=== PATIENT | female | born 1960 | race Caucasian/White ===

== ENCOUNTER 2018-03-12 08:13 | Inpatient (IN) | payer MEDICARE ==
[~2018-03-12] VITALS: Ht 165.1 cm; Wt 86.2 kg
[~2018-03-12 08:13] MED LIST: ALPR1TAB2 PO; ATOR80TA PO; CLON0.1T12 PO; CYCL-259 PO; ETOMIDATE 40 MG/20 ML ONE; LEVO100T PO; LIOT5TAB10 PO; MELO7.5T31 PO; MIDAZOLAM 1 MG/ML, 5ML ONE; ONDA4TAB13 SL; PROPOFOL 10 MG/ML, 100ML IV ONE; SUCCINYLCHOLINE 20 MG/ML, 10ML ONE; ZOLP10TA PO
[2018-03-12] MEDS ORDERED: PROPOFOL 100 ML IV PRN (08:18)
--- NOTE | 2018-03-12 08:27 | NUR ---
SEXOLOGIST: 150 MG SUCCS, 20 ETOMIDATE ADMINISTERED FOR RSI, MD RIVERA PREFORMING INTUBATION
--- NOTE | 2018-03-12 08:29 | NUR ---
BARREL RAISER: PT INTUBATED SUCCESSFULLY, 32 @ LIP, 7.5 ETT, + BILATERAL BREATH SOUNDS, + COLOR CHANGE
[2018-03-12] MEDS ORDERED: SUCCINYLCHOLINE 20 MG/ML, 10ML IVPush ONE (08:30)
[2018-03-12] MEDS ORDERED: SODIUM CHLORIDE FLUSH 10ML SYR IVF ONE (08:30)
[2018-03-12] MEDS ORDERED: SODIUM CHLORIDE 0.9% 1,000ML IVBOLUS ONE ×3 (08:30→20:00)
[2018-03-12] MEDS ORDERED: ETOMIDATE 20 MG/10 ML IVPush ONE (08:30)
[2018-03-12] MEDS ORDERED: FENTANYL PF 100 MCG/2ML ONE ×2 (09:00→10:34)
[2018-03-12] MEDS ORDERED: PROPOFOL 10 MG/ML, 20ML IVPush ONE (09:00)
[2018-03-12] MEDS ORDERED: FENTANYL PF 100 MCG/2ML IV ONE ×2 (09:00→12:00)
[2018-03-12] MEDS ORDERED: MIDAZOLAM 1 MG/ML, 2ML IVPush ONE (09:00)
[2018-03-12 09:41] LABS: MEAN CORPUSCULAR HGB CONC 32.7 g/dL (32.4-35.8); PLATELET COUNT 145 x10^3/uL (130-400); RED BLOOD COUNT 4.66 x10^6/uL (3.82-5.3); RED CELL DISTRIBUTION WIDTH 14.9 % (9.6-15.2)
[2018-03-12 09:52] LABS: INTERNATIONAL NORMALIZED RATIO 1.2 (0.93-1.1); PROTHROMBIN TIME 12.6 Seconds (9.6-11.5)
[2018-03-12 09:54] LABS: ALANINE AMINOTRANSFERASE 184 U/L (12-78); CHLORIDE 99 mmol/L (98-107); CREATININE 2.89 mg/dL (0.55-1.02); SALICYLATE LEVEL 1.8 mg/dL (2.8-20.0)
[2018-03-12 10:00] LABS: ANION GAP 16 mmol/L (5-15)
--- NOTE | 2018-03-12 10:00 | NUR ---
RINGS X 2 REMOVED AND GIVEN TO
--- NOTE | 2018-03-12 10:01 | NUR ---
LUISA, NUSRAT CELL #[phone]
[2018-03-12 10:08] LABS: ALKALINE PHOSPHATASE 116 U/L (45-117); BILIRUBIN,TOTAL 0.7 mg/dL (0.2-1.0); CREATINE KINASE, TOTAL 1917 U/L (26-192); TOTAL PROTEIN 7.7 g/dL (6.4-8.2)
[2018-03-12 10:09] LABS: MICROSCOPIC AUTO
[2018-03-12 10:12] LABS: ACETAMINOPHEN < 2 mcg/mL (10-30)
[2018-03-12 10:14] LABS: CULTURE INDICATED? NO
[2018-03-12 10:18] LABS: AMPHETAMINE SCREEN, URINE Negative (Negative); BARBITURATE SCREEN, URINE Negative (Negative); BENZODIAZEPINE SCREEN, URINE Positive (Negative); CANNABINOID SCREEN, URINE Negative (Negative); COCAINE SCREEN, URINE Negative (Negative); METHADONE SCREEN, URINE Negative (Negative); OPIATE SCREEN, URINE Positive (Negative)
[2018-03-12] MEDS ORDERED: DEXTROSE 50%, 50ML SYRINGE ONE (10:20)
[2018-03-12] MEDS ORDERED: CALCIUM CHLORIDE 10%, 10ML SYR ONE (10:20)
[2018-03-12] MEDS ORDERED: INSULIN REGULAR 100 UNITS/ML, 3ML VIAL ONE (10:22)
[2018-03-12 10:24] LABS: FREE T4 (FREE THYROXINE) 0.4 ng/dL (0.76-1.46); THYROID STIMULATING HORMONE 48.4 mIU/L (0.358-3.740)
[2018-03-12 10:28] LABS: MD YES
[2018-03-12 10:30] LABS: <PLATELET ESTIMATE> ADEQUATE; <RBC MORPHOLOGY> NORMAL; BAND#(MANUAL) 2.23 x10^3/uL; BANDS%(MANUAL) 8 % (0-7); LYMPH#(MANUAL) 1.12 x10^3/uL (1-3.4); LYMPHS% (MANUAL) 4 % (22-44); METAMYELOCYTES# (MANUAL) 0.28 x10^3/uL (0-0); METAMYELOCYTES% (MANUAL) 1 % (0-1); MONOS#(MANUAL) 1.95 x10^3/uL (0.3-2.7); MONOS% (MANUAL) 7 % (2-9); SEG#(MANUAL) 22.32 x10^3/uL (1.8-6.8); SEGS% (MANUAL) 80 % (42-75)
[2018-03-12] MEDS ORDERED: DEXTROSE 50%, 50ML SYRINGE IVPush ONE (10:30)
[2018-03-12] MEDS ORDERED: INSULIN REGULAR 100 UNITS/ML, 3ML VIAL IVPush ONE (10:30)
[2018-03-12] MEDS ORDERED: CALCIUM CHLORIDE 13.6 MEQ in SODIUM CHLORIDE 0.9% 100 ML IV ONE (10:30)
[2018-03-12] MEDS ORDERED: CALCIUM CHLORIDE 10%, 10ML SYR IVPush ONE ×2 (10:30→11:00)
[2018-03-12] MEDS ORDERED: AMPICILLIN/SULBACTAM 3 GM in SODIUM CHLORIDE 0.9% 100 ML IV ONE (10:30)
[2018-03-12] MEDS ORDERED: SODIUM CHLORIDE 0.9% 1,000 ML IV ONE (10:30)
[2018-03-12 10:31] LABS: LARGE PLATELETS 1+
[2018-03-12] MEDS ORDERED: SODIUM CHLORIDE 0.9% 1,000 ML IV SCH (10:56)
[2018-03-12] MEDS: AMPICILLIN/SULBACTAM 3 GM in SODIUM CHLORIDE 0.9% 100 ML IV SCH ×2 (11:00→18:12)
[2018-03-12] MEDS ORDERED: morphine SULFATE 10 MG/ML, 1ML IVPush PRN (11:00)
[2018-03-12] MEDS ORDERED: BISACODYL 10 MG SUPP PR PRN (11:00)
[2018-03-12] MEDS ORDERED: LEVOTHYROXINE 100 MCG INJ IVPush SCH (11:00)
[2018-03-12] MEDS ORDERED: POLYETHYLENE GLYCOL 17 GM PACKET PO PRN (11:00)
[2018-03-12] MEDS ORDERED: LABETALOL 5MG/ML, 20ML IVPush PRN (11:00)
[2018-03-12] MEDS ORDERED: ACETAMINOPHEN 325 MG TABLET PO PRN (11:00)
[2018-03-12] MEDS ORDERED: ONDANSETRON ODT 4 MG PO PRN (11:00)
[2018-03-12] MEDS: SODIUM BICARB 8.4%,50ML SYR. 50 MEQ in SODIUM CHLORIDE 0.45% 1,000 ML IV SCH ×2 (11:51→20:10)
--- NOTE | 2018-03-12 11:51 | NUR ---
LATE ENTRY, PT AT BEDSIDE, RPTS THAT HIS WAS SITTING UP WATCHING TV LAST NIGHT WHEN HE WENT TO BED AT 2300. WHEN HE WOKE UP THIS MORNING HE STATES THAT SHE WAS IN THE SAME POSITIONS WHEN HE LAST SAW HER AT 2300. RPTS THAT SHE WAS UNRESPONSIVE AND HE CALLED 911.
--- NOTE | 2018-03-12 11:53 | NUR ---
LATE ENTRY 1115, PT TRANSFERED TO CCU 550. ABG RESULTS REVIEWED WITH POOJA DUKE. [facility] TO FOLLOW ABG AND LAB RESULTS.
[2018-03-12] MEDS: HEPARIN 5,000 UNITS/ML, 1ML SQ SCH ×2 (12:38→19:13)
[2018-03-12] MEDS: LIOTHYRONINE 5 MCG TABLET PO SCH ×2 (12:38→19:13)
[2018-03-12 12:40] LABS: TROPONIN I 0.635 ng/mL (0.000-0.045)
[2018-03-12] MEDS ORDERED: PROPOFOL 10 MG/ML, 20ML IV ONE (14:00)
[2018-03-12] MEDS ORDERED: LIDOCAINE-MPF 1%, 2ML ENDO PRN (14:00)
[2018-03-12] MEDS ORDERED: PHARMACY MAY ADJ FOR RENAL FX MC SCH (14:00)
[2018-03-12] MEDS: ALBUTEROL/IPRATROPIUM 2.5MG/0.5MG, 3 ML INLINE SCH ×3 (14:00→22:40)
[2018-03-12] MEDS: FAMOTIDINE 20 MG/2 ML IVPush SCH (20:09)
[2018-03-12] MEDS ORDERED: FAMOTIDINE 20 MG/2 ML IVPush SCH (21:00)
[2018-03-12] MEDS: PROPOFOL 100 ML IV PRN (21:01)
[2018-03-13] MEDS: AMPICILLIN/SULBACTAM 3 GM in SODIUM CHLORIDE 0.9% 100 ML IV SCH ×4 (01:09→19:00)
[2018-03-13] MEDS: ALBUTEROL/IPRATROPIUM 2.5MG/0.5MG, 3 ML INLINE SCH ×6 (02:22→22:45)
[2018-03-13] MEDS: HEPARIN 5,000 UNITS/ML, 1ML SQ SCH ×3 (03:21→19:00)
[2018-03-13] MEDS: SODIUM BICARB 8.4%,50ML SYR. 50 MEQ in SODIUM CHLORIDE 0.45% 1,000 ML IV SCH ×3 (03:21→22:58)
[2018-03-13] MEDS: LIOTHYRONINE 5 MCG TABLET PO SCH ×3 (03:21→19:22)
[2018-03-13] MEDS: PROPOFOL 100 ML IV PRN ×5 (03:22→23:36)
[2018-03-13 04:31] LABS: CHLORIDE 109 mmol/L (98-107)
[2018-03-13 04:43] VITALS: BP 127/77
[2018-03-13 04:54] LABS: ALANINE AMINOTRANSFERASE 347 U/L (12-78); ALBUMIN 2.7 g/dL (3.4-5.0); ALKALINE PHOSPHATASE 87 U/L (45-117); ANION GAP 13 mmol/L (5-15); BILIRUBIN,TOTAL 0.7 mg/dL (0.2-1.0); CALCIUM 7.3 mg/dL (8.5-10.1); CHOL/HDL RATIO 4.3; CHOLESTEROL, TOTAL 152 mg/dL (140-239); CREATINE KINASE, TOTAL 1757 U/L (26-192); CREATININE 1.94 mg/dL (0.55-1.02); HDL CHOL % 23 % (28-40); HDL CHOLESTEROL (DIRECT) 35 mg/dL (40-60); LDL CHOLESTEROL,CALCULATED 81 mg/dL (54-169); LDL/HDL RATIO 2.3 (0.5-3.0); TOTAL PROTEIN 5.7 g/dL (6.4-8.2); TRIGLYCERIDES 178 mg/dL (50-200); VLDL CHOLESTEROL 36 mg/dL (0-25)
[2018-03-13] MEDS: LEVOTHYROXINE 100 MCG INJ IVPush SCH (05:10)
[2018-03-13] MEDS ORDERED: ASPIRIN 325 MG TABLET EC PO SCH (06:00)
[2018-03-13 07:46] LABS: MEAN CORPUSCULAR HEMOGLOBIN 31.3 pg (27.0-34.8); MEAN CORPUSCULAR HGB CONC 33.6 g/dL (32.4-35.8); MEAN CORPUSCULAR VOLUME 93.3 fL (80-100); MEAN PLATELET VOLUME 7.4 fL (7.4-10.4); PLATELET COUNT 258 x10^3/uL (130-400); RED BLOOD COUNT 4.18 x10^6/uL (3.82-5.3)
[2018-03-13] MEDS ORDERED: MAGNESIUM SULFATE PMX 2GM/50ML 50 ML IV ONE (08:00)
[2018-03-13 08:22] LABS: BASOPHILS # (AUTO) 0.08 x10^3/uL (0-0.1); BASOPHILS % (AUTO) 1 % (0-1); EOSINOPHILS % (AUTO) 0 % (1-7); LYMPHOCYTES # (AUTO) 2.58 x10^3/uL (1-3.4); LYMPHOCYTES % (AUTO) 15 % (22-44); MD SCAN; MONOCYTES # (AUTO) 0.81 x10^3/uL (0.2-0.8); MONOCYTES % (AUTO) 5 % (2-9); NEUTROPHILS # (AUTO) 14.26 x10^3/uL (1.8-6.8); NEUTROPHILS % (AUTO) 80 % (42-75)
[2018-03-13] MEDS: SENNA/DOCUSATE TABLET PO SCH (09:43)
--- NOTE | 2018-03-13 11:39 | NUR ---
TF GOAL when ordered: w/ propofol: VITAL HIGH PROTEIN @ 45ML/HR off propofol: VITAL HIGH PROTEIN @ 55ML/HR
[2018-03-13] MEDS ORDERED: DESMOPRESSIN 4 MCG/ML IVPush ONE (15:00)
[2018-03-13] MEDS: FENTANYL PF 100 MCG/2ML IVPush PRN (15:03)
[2018-03-13] MEDS: FAMOTIDINE 20 MG/2 ML IVPush SCH (19:21)
[2018-03-14] MEDS: AMPICILLIN/SULBACTAM 3 GM in SODIUM CHLORIDE 0.9% 100 ML IV SCH ×4 (01:29→19:23)
[2018-03-14] MEDS: ALBUTEROL/IPRATROPIUM 2.5MG/0.5MG, 3 ML INLINE SCH ×6 (02:25→22:24)
[2018-03-14] MEDS: LIOTHYRONINE 5 MCG TABLET PO SCH ×3 (03:02→19:29)
[2018-03-14] MEDS: HEPARIN 5,000 UNITS/ML, 1ML SQ SCH ×3 (03:02→19:23)
[2018-03-14] MEDS: PROPOFOL 100 ML IV PRN ×2 (03:41→07:09)
[2018-03-14 04:00] VITALS: BP 140/91
[2018-03-14 04:35] LABS: BASOPHILS # (AUTO) 0.04 x10^3/uL (0-0.1); BASOPHILS % (AUTO) 0 % (0-1); EOSINOPHILS # (AUTO) 0.03 x10^3/uL (0-0.4); EOSINOPHILS % (AUTO) 0 % (1-7); LYMPHOCYTES # (AUTO) 2.47 x10^3/uL (1-3.4); LYMPHOCYTES % (AUTO) 18 % (22-44); MD NO; MEAN CORPUSCULAR HEMOGLOBIN 31.9 pg (27.0-34.8); MEAN CORPUSCULAR HGB CONC 34.2 g/dL (32.4-35.8); MEAN CORPUSCULAR VOLUME 93.3 fL (80-100); MEAN PLATELET VOLUME 7.4 fL (7.4-10.4); MONOCYTES # (AUTO) 0.59 x10^3/uL (0.2-0.8); MONOCYTES % (AUTO) 4 % (2-9); NEUTROPHILS # (AUTO) 10.43 x10^3/uL (1.8-6.8); NEUTROPHILS % (AUTO) 77 % (42-75); PLATELET COUNT 181 x10^3/uL (130-400); RED BLOOD COUNT 3.83 x10^6/uL (3.82-5.3)
[2018-03-14] MEDS: ASPIRIN 325 MG TABLET PO SCH (05:36)
[2018-03-14] MEDS: LEVOTHYROXINE 100 MCG INJ IVPush SCH (05:37)
[2018-03-14 06:32] LABS: ANION GAP 11 mmol/L (5-15); CALCIUM 7.6 mg/dL (8.5-10.1); CHLORIDE 106 mmol/L (98-107)
[2018-03-14 06:34] LABS: CREATININE 0.75 mg/dL (0.55-1.02)
[2018-03-14] MEDS: SODIUM BICARB 8.4%,50ML SYR. 50 MEQ in SODIUM CHLORIDE 0.45% 1,000 ML IV SCH (07:09)
[2018-03-14] MEDS ORDERED: POTASSIUM CHLORIDE 10% 40 MEQ/30 ML UDC NG ONE (09:00)
[2018-03-14] MEDS ORDERED: POTASSIUM CHLORIDE 40 MEQ in SODIUM CHLORIDE 0.9% 100 ML IV ONE (09:00)
[2018-03-14 09:10] LABS: FREE T4 (FREE THYROXINE) 1.01 ng/dL (0.76-1.46)
[2018-03-14] MEDS: SENNA/DOCUSATE TABLET PO SCH (10:30)
[2018-03-14] MEDS: DEXMEDETOMIDINE 200 MCG in SODIUM CHLORIDE 0.9% 48 ML IV PRN ×3 (12:23→15:00)
[2018-03-14] MEDS: SODIUM CHLORIDE 0.9% 1,000 ML IV SCH (13:54)
[2018-03-14] MEDS ORDERED: DEXMEDETOMIDINE 1,000 MCG in SODIUM CHLORIDE 0.9% 240 ML IV PRN (16:00)
[2018-03-14] MEDS: FAMOTIDINE 20 MG/2 ML IVPush SCH (20:17)
[2018-03-14] MEDS: LORazepam 2 MG/ML, 1ML IVPush PRN (22:03)
[2018-03-15] MEDS: FENTANYL PF 100 MCG/2ML IVPush PRN ×2 (00:45→15:45)
[2018-03-15] MEDS: AMPICILLIN/SULBACTAM 3 GM in SODIUM CHLORIDE 0.9% 100 ML IV SCH ×4 (01:08→18:39)
[2018-03-15] MEDS: PROPOFOL 100 ML IV PRN ×6 (01:37→23:06)
[2018-03-15] MEDS: ALBUTEROL/IPRATROPIUM 2.5MG/0.5MG, 3 ML INLINE SCH ×6 (02:25→23:22)
[2018-03-15] MEDS: HEPARIN 5,000 UNITS/ML, 1ML SQ SCH ×3 (03:09→18:39)
[2018-03-15] MEDS: LIOTHYRONINE 5 MCG TABLET PO SCH ×3 (03:09→18:38)
[2018-03-15 04:00] VITALS: BP 120/77
[2018-03-15 04:59] LABS: BASOPHILS # (AUTO) 0.02 x10^3/uL (0-0.1); BASOPHILS % (AUTO) 0 % (0-1); EOSINOPHILS # (AUTO) 0.03 x10^3/uL (0-0.4); EOSINOPHILS % (AUTO) 0 % (1-7); LYMPHOCYTES # (AUTO) 2.44 x10^3/uL (1-3.4); LYMPHOCYTES % (AUTO) 18 % (22-44); MD NO; MEAN CORPUSCULAR HGB CONC 34.3 g/dL (32.4-35.8); MEAN CORPUSCULAR VOLUME 93.3 fL (80-100); MEAN PLATELET VOLUME 7.7 fL (7.4-10.4); MONOCYTES # (AUTO) 0.67 x10^3/uL (0.2-0.8); MONOCYTES % (AUTO) 5 % (2-9); NEUTROPHILS # (AUTO) 10.67 x10^3/uL (1.8-6.8); NEUTROPHILS % (AUTO) 77 % (42-75); PLATELET COUNT 135 x10^3/uL (130-400); RED BLOOD COUNT 3.69 x10^6/uL (3.82-5.3)
[2018-03-15 05:12] LABS: ALBUMIN 2.5 g/dL (3.4-5.0); ANION GAP 9 mmol/L (5-15); CALCIUM 7.3 mg/dL (8.5-10.1); CHLORIDE 112 mmol/L (98-107)
[2018-03-15 05:23] LABS: ALANINE AMINOTRANSFERASE 224 U/L (12-78); ALKALINE PHOSPHATASE 85 U/L (45-117); BILIRUBIN, DIRECT 0.4 mg/dL (0.1-0.2); BILIRUBIN,INDIRECT 0.6 mg/dL (0.0-2.0); CREATININE 0.69 mg/dL (0.55-1.02); FREE T4 (FREE THYROXINE) 1.03 ng/dL (0.76-1.46); TOTAL PROTEIN 5.7 g/dL (6.4-8.2); TRIGLYCERIDES 224 mg/dL (50-200)
[2018-03-15] MEDS: LEVOTHYROXINE 100 MCG INJ IVPush SCH (05:31)
[2018-03-15] MEDS: ASPIRIN 325 MG TABLET PO SCH (05:31)
[2018-03-15] MEDS: SENNA/DOCUSATE TABLET PO SCH (09:25)
[2018-03-15] MEDS: SODIUM CHLORIDE 0.9% 1,000 ML IV SCH (09:26)
[2018-03-15] MEDS: DEXAMETHASONE 4 MG/ML, 5ML IV SCH ×3 (10:49→22:12)
[2018-03-15] MEDS: LORazepam 2 MG/ML, 1ML IVPush PRN (15:25)
[2018-03-15] MEDS ORDERED: DEXMEDETOMIDINE 1,000 MCG in SODIUM CHLORIDE 0.9% 240 ML IV PRN (16:00)
[2018-03-15] MEDS ORDERED: POTASSIUM CHLORIDE 10% 40 MEQ/30 ML UDC PO ONE (18:30)
[2018-03-15] MEDS: MIDAZOLAM HCL 25 MG in SODIUM CHLORIDE 0.9% 245 ML IV PRN (20:10)
[2018-03-15] MEDS: FAMOTIDINE 20 MG/2 ML IVPush SCH (20:16)
[2018-03-16] MEDS: AMPICILLIN/SULBACTAM 3 GM in SODIUM CHLORIDE 0.9% 100 ML IV SCH ×4 (01:08→19:51)
[2018-03-16] MEDS: FENTANYL PF 100 MCG/2ML IVPush PRN (01:50)
[2018-03-16] MEDS: MIDAZOLAM HCL 25 MG in SODIUM CHLORIDE 0.9% 245 ML IV PRN (02:23)
[2018-03-16] MEDS ORDERED: SODIUM CHLORIDE 0.9%, 500ML IVBOLUS ONE (02:30)
[2018-03-16] MEDS ORDERED: ALBUMIN HUMAN 25% 100 ML IV PRN (02:30)
[2018-03-16] MEDS ORDERED: SODIUM CHLORIDE 0.9%, 500ML IVBOLUS PRN (02:30)
[2018-03-16] MEDS: HEPARIN 5,000 UNITS/ML, 1ML SQ SCH (03:02)
[2018-03-16] MEDS: LIOTHYRONINE 5 MCG TABLET PO SCH ×3 (03:03→19:51)
[2018-03-16 03:47] LABS: BASOPHILS % (AUTO) 0 % (0-1); EOSINOPHILS % (AUTO) 0 % (1-7); LYMPHOCYTES # (AUTO) 0.94 x10^3/uL (1-3.4); LYMPHOCYTES % (AUTO) 10 % (22-44); MD NO; MEAN CORPUSCULAR HEMOGLOBIN 31.7 pg (27.0-34.8); MEAN PLATELET VOLUME 8.1 fL (7.4-10.4); MONOCYTES # (AUTO) 0.13 x10^3/uL (0.2-0.8); MONOCYTES % (AUTO) 1 % (2-9); NEUTROPHILS # (AUTO) 8.65 x10^3/uL (1.8-6.8); NEUTROPHILS % (AUTO) 89 % (42-75); PLATELET COUNT 138 x10^3/uL (130-400); RED BLOOD COUNT 3.67 x10^6/uL (3.82-5.3); RED CELL DISTRIBUTION WIDTH 15.2 % (9.6-15.2)
[2018-03-16] MEDS: ALBUTEROL/IPRATROPIUM 2.5MG/0.5MG, 3 ML INLINE SCH ×3 (03:50→10:59)
[2018-03-16 03:54] LABS: ANION GAP 13 mmol/L (5-15); CALCIUM 7.6 mg/dL (8.5-10.1); CHLORIDE 116 mmol/L (98-107); CREATININE 0.66 mg/dL (0.55-1.02)
[2018-03-16] MEDS: DEXAMETHASONE 4 MG/ML, 5ML IV SCH (04:03)
[2018-03-16 04:06] VITALS: BP 135/90
[2018-03-16] MEDS ORDERED: SODIUM CHLORIDE 0.9% 1,000 ML IV SCH ×2 (05:00→14:00)
[2018-03-16] MEDS: PROPOFOL 100 ML IV PRN ×2 (05:15→08:19)
[2018-03-16] MEDS: ASPIRIN 325 MG TABLET PO SCH (05:44)
[2018-03-16] MEDS: LEVOTHYROXINE 100 MCG INJ IVPush SCH (05:50)
[2018-03-16] MEDS: FAMOTIDINE 20 MG/2 ML IVPush SCH ×2 (07:37→21:13)
[2018-03-16] MEDS: SENNA/DOCUSATE TABLET PO SCH (07:37)
[2018-03-16] MEDS: OXYcodone IR 5MG TABLET PO PRN ×2 (09:08→13:53)
[2018-03-16] MEDS ORDERED: POTASSIUM CHLORIDE 20 MEQ PACKET PO ONE (11:30)
[2018-03-16] MEDS ORDERED: ALBUTEROL/IPRATROPIUM 2.5MG/0.5MG, 3 ML NPPB PRN (15:00)
[2018-03-16] MEDS: ONDANSETRON 2MG/ML, 2ML IVPush PRN (23:22)
[2018-03-17] MEDS: AMPICILLIN/SULBACTAM 3 GM in SODIUM CHLORIDE 0.9% 100 ML IV SCH ×4 (02:34→20:07)
[2018-03-17] MEDS: LIOTHYRONINE 5 MCG TABLET PO SCH ×3 (02:34→20:07)
[2018-03-17 03:47] VITALS: BP_SYST 125; BP_SYST 138; BP_DIAS 55; BP_DIAS 88
[2018-03-17 04:19] LABS: BASOPHILS # (AUTO) 0.05 x10^3/uL (0-0.1); BASOPHILS % (AUTO) 0 % (0-1); EOSINOPHILS # (AUTO) 0.01 x10^3/uL (0-0.4); EOSINOPHILS % (AUTO) 0 % (1-7); LYMPHOCYTES # (AUTO) 2.94 x10^3/uL (1-3.4); LYMPHOCYTES % (AUTO) 21 % (22-44); MD NO; MEAN CORPUSCULAR HEMOGLOBIN 31.9 pg (27.0-34.8); MEAN CORPUSCULAR HGB CONC 33.8 g/dL (32.4-35.8); MEAN CORPUSCULAR VOLUME 94.3 fL (80-100); MEAN PLATELET VOLUME 7.6 fL (7.4-10.4); MONOCYTES # (AUTO) 1.01 x10^3/uL (0.2-0.8); MONOCYTES % (AUTO) 7 % (2-9); NEUTROPHILS # (AUTO) 10.34 x10^3/uL (1.8-6.8); NEUTROPHILS % (AUTO) 72 % (42-75); PLATELET COUNT 165 x10^3/uL (130-400); RED BLOOD COUNT 3.48 x10^6/uL (3.82-5.3); RED CELL DISTRIBUTION WIDTH 15.4 % (9.6-15.2)
[2018-03-17 04:27] LABS: ANION GAP 10 mmol/L (5-15); CALCIUM 8.1 mg/dL (8.5-10.1); CHLORIDE 117 mmol/L (98-107); CREATININE 0.71 mg/dL (0.55-1.02)
[2018-03-17 04:38] LABS: FREE T4 (FREE THYROXINE) 1.2 ng/dL (0.76-1.46); THYROID STIMULATING HORMONE 6.91 mIU/L (0.358-3.740)
[2018-03-17] MEDS: ASPIRIN 325 MG TABLET PO SCH (06:11)
[2018-03-17] MEDS: LEVOTHYROXINE 100 MCG INJ IVPush SCH (06:12)
[2018-03-17] MEDS: ONDANSETRON 2MG/ML, 2ML IVPush PRN (07:04)
[2018-03-17] MEDS: SENNA/DOCUSATE TABLET PO SCH (09:56)
[2018-03-17] MEDS: FAMOTIDINE 20 MG/2 ML IVPush SCH ×2 (09:56→20:11)
--- NOTE | 2018-03-17 10:36 | NUR ---
REC PUREE/THIN; swallow precautions sheet posted at bedside Addendum: 03/17/18 at [address] Amended: Links added.
[2018-03-17 11:11] LABS: ALANINE AMINOTRANSFERASE 116 U/L (12-78); ALBUMIN 3.1 g/dL (3.4-5.0)
[2018-03-17 11:13] LABS: ALKALINE PHOSPHATASE 68 U/L (45-117); BILIRUBIN,TOTAL 0.8 mg/dL (0.2-1.0); TOTAL PROTEIN 6.3 g/dL (6.4-8.2)
[2018-03-17 12:34] VITALS: BP 144/94
[2018-03-17 20:04] VITALS: BP 150/98
[2018-03-17] MEDS: LORazepam 2 MG/ML, 1ML IVPush PRN (20:08)
[2018-03-18 00:40] VITALS: BP 157/99
[2018-03-18] MEDS: AMPICILLIN/SULBACTAM 3 GM in SODIUM CHLORIDE 0.9% 100 ML IV SCH ×4 (00:46→19:15)
[2018-03-18] MEDS: LORazepam 2 MG/ML, 1ML IVPush PRN ×2 (01:51→20:37)
[2018-03-18] MEDS: ASPIRIN 325 MG TABLET PO SCH ×2 (04:37→06:30)
[2018-03-18] MEDS: LEVOTHYROXINE 100 MCG INJ IVPush SCH (04:37)
[2018-03-18] MEDS: LIOTHYRONINE 5 MCG TABLET PO SCH ×3 (04:37→19:16)
[2018-03-18 05:45] LABS: MEAN CORPUSCULAR HEMOGLOBIN 31.9 pg (27.0-34.8); MEAN CORPUSCULAR HGB CONC 34.1 g/dL (32.4-35.8); MEAN CORPUSCULAR VOLUME 93.6 fL (80-100); MEAN PLATELET VOLUME 7.2 fL (7.4-10.4); PLATELET COUNT 188 x10^3/uL (130-400); RED BLOOD COUNT 3.58 x10^6/uL (3.82-5.3); RED CELL DISTRIBUTION WIDTH 14.9 % (9.6-15.2)
[2018-03-18 05:48] LABS: ANION GAP 9 mmol/L (5-15); CALCIUM 8.1 mg/dL (8.5-10.1); CHLORIDE 109 mmol/L (98-107); CREATININE 0.54 mg/dL (0.55-1.02)
[2018-03-18 05:49] LABS: ALANINE AMINOTRANSFERASE 84 U/L (12-78); ALBUMIN 2.9 g/dL (3.4-5.0)
[2018-03-18 05:51] LABS: ALKALINE PHOSPHATASE 73 U/L (45-117); BILIRUBIN,TOTAL 0.7 mg/dL (0.2-1.0); TOTAL PROTEIN 6.1 g/dL (6.4-8.2)
[2018-03-18 06:01] LABS: BASOPHILS # (AUTO) 0.04 x10^3/uL (0-0.1); BASOPHILS % (AUTO) 0 % (0-1); EOSINOPHILS # (AUTO) 0.27 x10^3/uL (0-0.4); EOSINOPHILS % (AUTO) 2 % (1-7); LYMPHOCYTES # (AUTO) 2.84 x10^3/uL (1-3.4); LYMPHOCYTES % (AUTO) 25 % (22-44); MD SCAN; MONOCYTES # (AUTO) 0.93 x10^3/uL (0.2-0.8); MONOCYTES % (AUTO) 8 % (2-9); NEUTROPHILS # (AUTO) 7.37 x10^3/uL (1.8-6.8); NEUTROPHILS % (AUTO) 64 % (42-75)
[2018-03-18] MEDS: FAMOTIDINE 20 MG/2 ML IVPush SCH ×2 (07:54→20:37)
[2018-03-18] MEDS: SENNA/DOCUSATE TABLET PO SCH (07:54)
[2018-03-18 08:30] VITALS: BP 128/79
[2018-03-18 14:20] VITALS: BP 122/76
[2018-03-18] MEDS ORDERED: POTASSIUM CHLORIDE 20 MEQ TAB.ER.PRT PO ONE (15:00)
--- NOTE | 2018-03-18 15:10 | NUR ---
NET DEVELOPER recommed: REGULAR/ THINS -no straws -upright at 90 degrees -Small bites/ sips -Close supervision. [place] sheet updated Addendum: 03/18/18 at [address] Amended: Links added.
[2018-03-18] MEDS: OXYcodone IR 5MG TABLET PO PRN (17:59)
[2018-03-18 20:21] VITALS: BP 144/93
[2018-03-18] MEDS: APIXABAN 5 MG TABLET PO SCH (22:13)
[2018-03-19] MEDS: AMPICILLIN/SULBACTAM 3 GM in SODIUM CHLORIDE 0.9% 100 ML IV SCH ×3 (01:07→13:44)
[2018-03-19 01:09] VITALS: BP 135/81
[2018-03-19] MEDS ORDERED: DIPHENHYDRAMINE 12.5MG/5ML, 10ML UDC PO ONE (01:30)
[2018-03-19] MEDS: LIOTHYRONINE 5 MCG TABLET PO SCH ×2 (02:48→21:56)
[2018-03-19] MEDS ORDERED: LEVOTHYROXINE 200 MCG TABLET PO SCH (06:00)
[2018-03-19 06:20] LABS: ANION GAP 8 mmol/L (5-15); CALCIUM 7.9 mg/dL (8.5-10.1); CHLORIDE 109 mmol/L (98-107); CREATININE 0.53 mg/dL (0.55-1.02)
[2018-03-19 08:00] VITALS: BP 142/88
[2018-03-19] MEDS ORDERED: POTASSIUM CHLORIDE 20 MEQ TAB.ER.PRT PO SCH (08:00)
[2018-03-19] MEDS: FAMOTIDINE 20 MG/2 ML IVPush SCH (08:59)
[2018-03-19] MEDS: APIXABAN 5 MG TABLET PO SCH ×2 (08:59→21:55)
[2018-03-19] MEDS: SENNA/DOCUSATE TABLET PO SCH (08:59)
[2018-03-19 14:00] VITALS: BP 161/101
[2018-03-19 20:11] VITALS: BP 153/92
[2018-03-19] MEDS: ATORVASTATIN 80 MG TABLET PO SCH (21:55)
[2018-03-20 00:45] VITALS: BP 142/80
[2018-03-20] MEDS: LEVOTHYROXINE 150 MCG TABLET PO SCH (05:02)
[2018-03-20 06:00] LABS: CALCIUM 8.1 mg/dL (8.5-10.1); CHLORIDE 105 mmol/L (98-107)
[2018-03-20 06:02] LABS: ANION GAP 8 mmol/L (5-15); CREATININE 0.69 mg/dL (0.55-1.02)
[2018-03-20 07:50] VITALS: BP 125/83
[2018-03-20] MEDS: LIOTHYRONINE 5 MCG TABLET PO SCH ×2 (09:46→20:28)
[2018-03-20] MEDS: AMLODIPINE 5 MG TABLET PO SCH ×2 (09:46→20:28)
[2018-03-20] MEDS: POTASSIUM CHLORIDE 20 MEQ TAB.ER.PRT PO SCH ×2 (09:46→17:23)
[2018-03-20] MEDS: SENNA/DOCUSATE TABLET PO SCH (09:47)
[2018-03-20] MEDS: APIXABAN 5 MG TABLET PO SCH ×2 (09:48→20:28)
[2018-03-20] MEDS ORDERED: LIDOCAINE 1%, 20ML ONE (12:06)
[2018-03-20 13:06] VITALS: BP 154/80
[2018-03-20] MEDS ORDERED: POTA20TA6 PO (14:56)
[2018-03-20] MEDS ORDERED: AMLO-150 PO (14:56)
[2018-03-20] MEDS ORDERED: LEVO150T PO (14:58)
[2018-03-20] MEDS: ATORVASTATIN 80 MG TABLET PO SCH (20:28)
[2018-03-20] MEDS ORDERED: ZOLPIDEM 10MG TABLET PO SCH (21:00)
[2018-03-20 21:41] VITALS: BP 151/90
[2018-03-21 01:40] VITALS: BP 131/83
[2018-03-21 05:14] LABS: ALBUMIN 3.3 g/dL (3.4-5.0); ANION GAP 5 mmol/L (5-15); CALCIUM 8.7 mg/dL (8.5-10.1); CHLORIDE 108 mmol/L (98-107)
[2018-03-21 05:19] LABS: ALANINE AMINOTRANSFERASE 62 U/L (12-78); ALKALINE PHOSPHATASE 73 U/L (45-117); BILIRUBIN,TOTAL 0.6 mg/dL (0.2-1.0); CREATININE 0.56 mg/dL (0.55-1.02); TOTAL PROTEIN 6.7 g/dL (6.4-8.2)
[2018-03-21 05:21] LABS: BASOPHILS # (AUTO) 0.07 x10^3/uL (0-0.1); BASOPHILS % (AUTO) 1 % (0-1); EOSINOPHILS # (AUTO) 0.34 x10^3/uL (0-0.4); EOSINOPHILS % (AUTO) 3 % (1-7); LYMPHOCYTES # (AUTO) 3.86 x10^3/uL (1-3.4); LYMPHOCYTES % (AUTO) 34 % (22-44); MD NO; MEAN CORPUSCULAR HEMOGLOBIN 31.7 pg (27.0-34.8); MEAN CORPUSCULAR VOLUME 93.2 fL (80-100); MEAN PLATELET VOLUME 7.1 fL (7.4-10.4); MONOCYTES % (AUTO) 9 % (2-9); NEUTROPHILS # (AUTO) 6.04 x10^3/uL (1.8-6.8); NEUTROPHILS % (AUTO) 53 % (42-75); PLATELET COUNT 382 x10^3/uL (130-400); RED CELL DISTRIBUTION WIDTH 14.4 % (9.6-15.2)
[2018-03-21] MEDS: LEVOTHYROXINE 150 MCG TABLET PO SCH (05:22)
[2018-03-21] MEDS ORDERED: METOPROLOL TARTRATE 25 MG TABLET PO SCH (07:30)
[2018-03-21] MEDS: SENNA/DOCUSATE TABLET PO SCH (07:55)
[2018-03-21] MEDS: POTASSIUM CHLORIDE 20 MEQ TAB.ER.PRT PO SCH (07:55)
[2018-03-21 08:27] VITALS: BP 133/79
[2018-03-21] MEDS: APIXABAN 5 MG TABLET PO SCH (08:29)
[2018-03-21] MEDS: LIOTHYRONINE 5 MCG TABLET PO SCH (08:29)
[2018-03-21] MEDS ORDERED: AMLODIPINE 5 MG TABLET PO SCH (09:00)
[2018-03-21] MEDS ORDERED: APIX5TAB PO (10:48)
[2018-03-21] MEDS ORDERED: METO25TA35 PO (10:48)
== END 2018-03-21 11:54 | DRG 853 ==
LOC: ED 10:32 → CCU 10:33 → ED 11:42 → CCU 03-16 20:55 → 5SO 03-17 10:58
PROVIDERS: ADMIT Internal Medicine; ATTEND Internal Medicine
PROC: 0BH17EZ Insertion of Endotracheal Airway into Trachea, Via Natural or Artificial Opening (ICD-10-PCS; principal; 2018-03-12)
PROC: 5A1955Z Respiratory Ventilation, Greater than 96 Consecutive Hours (ICD-10-PCS; 2018-03-12)
PROC: 02HV33Z Insertion of Infusion Device into Superior Vena Cava, Percutaneous Approach (ICD-10-PCS; 2018-03-12)
PROC: B548ZZA Ultrasonography of Superior Vena Cava, Guidance (ICD-10-PCS; 2018-03-12)
PROC: 0JH602Z Insertion of Monitoring Device into Chest Subcutaneous Tissue and Fascia, Open Approach (ICD-10-PCS; 2018-03-20)
DX: A41.9 Sepsis, unspecified organism (principal); I61.9 Nontraumatic intracerebral hemorrhage, unspecified; I63.40 Cerebral infarction due to embolism of unspecified cerebral artery; N17.0 Acute kidney failure with tubular necrosis; J69.0 Pneumonitis due to inhalation of food and vomit; R65.21 Severe sepsis with septic shock; J96.01 Acute respiratory failure with hypoxia; J96.02 Acute respiratory failure with hypercapnia; B17.9 Acute viral hepatitis, unspecified; F20.0 Paranoid schizophrenia; G93.40 Encephalopathy, unspecified; J98.11 Atelectasis; M62.82 Rhabdomyolysis; Z99.11 Dependence on respirator [ventilator] status; I24.8 Other forms of acute ischemic heart disease; E03.9 Hypothyroidism, unspecified; E78.5 Hyperlipidemia, unspecified; E87.5 Hyperkalemia; E87.6 Hypokalemia; F31.9 Bipolar disorder, unspecified; E66.01 Morbid (severe) obesity due to excess calories; F41.0 Panic disorder [episodic paroxysmal anxiety]; G31.84 Mild cognitive impairment of uncertain or unknown etiology; I10 Essential (primary) hypertension; I27.20 Pulmonary hypertension, unspecified; I34.0 Nonrheumatic mitral (valve) insufficiency; J44.9 Chronic obstructive pulmonary disease, unspecified; M19.90 Unspecified osteoarthritis, unspecified site; Z79.4 Long term (current) use of insulin; Z82.5 Family history of asthma and other chronic lower respiratory diseases; Z87.891 Personal history of nicotine dependence; Z90.5 Acquired absence of kidney; Z90.722 Acquired absence of ovaries, bilateral; Z68.31 Body mass index [BMI] 31.0-31.9, adult
CPT/HCPCS: 33282; 36415; 36600; 70450; 70544; 70547; 70551; 70553; 71045; 80048; 80053; 80061; 80076; 80307; 80329; 81001; 81241; 82140; 82533; 82550; 82803; 82962; 83605; 83735; 84100; 84132; 84439; 84443; 84478; 84481; 84484; 85025; 85210; 85300; 85301; 85302; 85305; 85306; 85610; 85730; 86146; 87040; 87070; 87077; 87081; 87205; 93005; 93312; 93321; 93325; 94002; 94003; 94150; 94640; 96361; 96374; 96375; 99292; C1764; C8929; G0378; J0295; J1100; J1644; J2250; J2405; J2597; J2704; J3010; J3480; J3490; J7620; P9047; Q9957; 92523-GN; G0480; J0330; J2060; J3475; J7030; J7040; J7050

== ENCOUNTER 2018-05-30 15:19 | Inpatient (IN) | payer MEDICARE ==
[~2018-05-30] VITALS: Ht 160 cm; Wt 82.7 kg
[~2018-05-30 15:19] MED LIST changes: +AMLO-150 PO; +AMOX1TAB64 PO; +APIX5TAB PO; +ATOR20TA37 PO; +DULO20CA45 PO; -ETOMIDATE 40 MG/20 ML ONE; +GABA-827 PO; +LEVO150T PO; +METO25TA35 PO; -MIDAZOLAM 1 MG/ML, 5ML ONE; +OXYC15TA PO; +POTA20TA6 PO; -PROPOFOL 10 MG/ML, 100ML IV ONE; -SUCCINYLCHOLINE 20 MG/ML, 10ML ONE
--- NOTE | 2018-05-30 15:31 | NUR ---
Pt BIB [facility] from home-pt c/o generalized weakness starting this morning. Pt drowsy, awakens to her name being called. Pt A&Ox4, follows commands. Pt's bilat LEs mildly weak, slurred speech. Pt placed in gown, positioned for comfort in bed. Continuous heart, oxygen and BP monitors applied, all safety measures observed. Pt's at bedside. Dr. De Los Santos at bedside to evaluate pt.
--- NOTE | 2018-05-30 15:43 | NUR ---
SBAR report received from RN, Greta. Pt resting on gurney, IVF infusing. at bedside. Pt and family aware of plan for CT scan.
[2018-05-30] MEDS ORDERED: SODIUM CHLORIDE 0.9% 1,000ML IVBOLUS ONE (16:00)
[2018-05-30] MEDS ORDERED: SODIUM CHLORIDE FLUSH 10ML SYR IVF ONE (16:00)
[2018-05-30 16:07] LABS: BASOPHILS # (AUTO) 0.07 x10^3/uL (0-0.1); BASOPHILS % (AUTO) 1 % (0-1); EOSINOPHILS # (AUTO) 0.43 x10^3/uL (0-0.4); EOSINOPHILS % (AUTO) 4 % (1-7); LYMPHOCYTES # (AUTO) 3.51 x10^3/uL (1-3.4); LYMPHOCYTES % (AUTO) 29 % (22-44); MD NO; MEAN CORPUSCULAR HEMOGLOBIN 30.3 pg (27.0-34.8); MEAN CORPUSCULAR HGB CONC 32.7 g/dL (32.4-35.8); MEAN CORPUSCULAR VOLUME 92.5 fL (80-100); MEAN PLATELET VOLUME 7.3 fL (7.4-10.4); MONOCYTES # (AUTO) 0.88 x10^3/uL (0.2-0.8); MONOCYTES % (AUTO) 7 % (2-9); NEUTROPHILS # (AUTO) 7.05 x10^3/uL (1.8-6.8); NEUTROPHILS % (AUTO) 59 % (42-75); PLATELET COUNT 354 x10^3/uL (130-400); RED CELL DISTRIBUTION WIDTH 13.1 % (9.6-15.2)
--- NOTE | 2018-05-30 16:08 | NUR ---
Pt back to room from imaging.
[2018-05-30 16:17] LABS: ALANINE AMINOTRANSFERASE 24 U/L (12-78); ANION GAP 5 mmol/L (5-15); CALCIUM 8.3 mg/dL (8.5-10.1); CHLORIDE 105 mmol/L (98-107); CREATININE 0.83 mg/dL (0.55-1.02)
[2018-05-30 16:21] LABS: ALKALINE PHOSPHATASE 84 U/L (45-117); BILIRUBIN,TOTAL 0.5 mg/dL (0.2-1.0); TOTAL PROTEIN 5.9 g/dL (6.4-8.2); TROPONIN I < 0.015 ng/mL (0.000-0.045)
--- NOTE | 2018-05-30 16:23 | NUR ---
EKG done. Pt requesting swabs for mouth, lemon swabs provided. remains at bedside. Pt's arm repositioned for better flow of IV fluids, only appx 200mL in so far, now flowing wide open.
--- NOTE | 2018-05-30 17:10 | NUR ---
Pt O2 sat noted to be below 90%, pt mouth breathing with nasal cannula on and sleeping. Pt placed on simple mask at 4LPM and O2 sat back up to mid 90's.
--- NOTE | 2018-05-30 17:20 | NUR ---
Pt sleeping on gurney, remains at bedside. VSS, pt remains on O2.
--- NOTE | 2018-05-30 17:55 | NUR ---
Dr. Valdovinos at bedside to discuss ED findings and POC.
--- NOTE | 2018-05-30 18:39 | NUR ---
Amira ELIAS, at bedside to evaluate pt for admission.
[2018-05-30] MEDS ORDERED: BISACODYL 10 MG SUPP PR PRN (19:00)
[2018-05-30] MEDS ORDERED: LABETALOL 5MG/ML, 20ML IVPush PRN (19:00)
[2018-05-30] MEDS ORDERED: LIDODERM 5% PATCH TD PRN (19:00)
[2018-05-30] MEDS ORDERED: ONDANSETRON ODT 4 MG PO PRN (19:00)
[2018-05-30] MEDS ORDERED: ACETAMINOPHEN 325 MG TABLET PO PRN (19:00)
--- NOTE | 2018-05-30 19:02 | NUR ---
Telephone SBAR report called to Radhika PATTON. Pt made aware of new room assignment.
[2018-05-30 19:50] VITALS: BP 117/77
[2018-05-30] MEDS: SODIUM CHLORIDE 0.9% 1,000 ML IV SCH (20:17)
[2018-05-30 20:59] LABS: MICROSCOPIC NOT IND
[2018-05-30 21:05] LABS: CULTURE INDICATED? NO
[2018-05-30 22:00] VITALS: BP 124/85
[2018-05-30] MEDS ORDERED: NALOXONE 0.4 MG/ML, 1ML IVPush ONE (22:00)
[2018-05-30] MEDS ORDERED: OMNIPAQUE 300 MG/ML, 10ML VIAL ONE (23:32)
[2018-05-30 23:54] LABS: AMPHETAMINE SCREEN, URINE Negative (Negative); BARBITURATE SCREEN, URINE Negative (Negative); BENZODIAZEPINE SCREEN, URINE Positive (Negative); CANNABINOID SCREEN, URINE Negative (Negative); COCAINE SCREEN, URINE Negative (Negative); METHADONE SCREEN, URINE Negative (Negative); OPIATE SCREEN, URINE Positive (Negative)
[2018-05-31] VITALS: BP 127/82
[2018-05-31 03:55] VITALS: BP 108/69
[2018-05-31] MEDS: SODIUM CHLORIDE 0.9% 1,000 ML IV SCH (03:56)
[2018-05-31 05:17] LABS: BASOPHILS # (AUTO) 0.05 x10^3/uL (0-0.1); BASOPHILS % (AUTO) 1 % (0-1); EOSINOPHILS # (AUTO) 0.14 x10^3/uL (0-0.4); EOSINOPHILS % (AUTO) 2 % (1-7); LYMPHOCYTES # (AUTO) 3.26 x10^3/uL (1-3.4); LYMPHOCYTES % (AUTO) 36 % (22-44); MD NO; MEAN CORPUSCULAR HEMOGLOBIN 31.3 pg (27.0-34.8); MEAN CORPUSCULAR VOLUME 92.2 fL (80-100); MEAN PLATELET VOLUME 7.9 fL (7.4-10.4); MONOCYTES # (AUTO) 0.61 x10^3/uL (0.2-0.8); MONOCYTES % (AUTO) 7 % (2-9); NEUTROPHILS # (AUTO) 5.04 x10^3/uL (1.8-6.8); NEUTROPHILS % (AUTO) 55 % (42-75); PLATELET COUNT 300 x10^3/uL (130-400); RED CELL DISTRIBUTION WIDTH 12.9 % (9.6-15.2)
[2018-05-31 05:24] LABS: ALBUMIN 2.8 g/dL (3.4-5.0); ANION GAP 3 mmol/L (5-15); CALCIUM 7.9 mg/dL (8.5-10.1); CHLORIDE 110 mmol/L (98-107)
[2018-05-31 05:33] LABS: ALANINE AMINOTRANSFERASE 22 U/L (12-78); ALKALINE PHOSPHATASE 95 U/L (45-117); BILIRUBIN,TOTAL 0.6 mg/dL (0.2-1.0); CHOL/HDL RATIO 4.6; CHOLESTEROL, TOTAL 134 mg/dL (140-239); CREATININE 0.56 mg/dL (0.55-1.02); FREE T4 (FREE THYROXINE) 1.44 ng/dL (0.76-1.46); HDL CHOL % 22 % (28-40); HDL CHOLESTEROL (DIRECT) 29 mg/dL (40-60); LDL CHOLESTEROL,CALCULATED 79 mg/dL (54-169); LDL/HDL RATIO 2.7 (0.5-3.0); THYROID STIMULATING HORMONE 0.128 mIU/L (0.358-3.740); TOTAL PROTEIN 5.7 g/dL (6.4-8.2); TRIGLYCERIDES 130 mg/dL (50-200); VLDL CHOLESTEROL 26 mg/dL (0-25)
[2018-05-31 07:13] VITALS: BP 119/79
[2018-05-31] MEDS ORDERED: ACETAMINOPHEN 325 MG TABLET PO PRN (09:00)
[2018-05-31] MEDS ORDERED: ENOXAPARIN 40 MG/0.4 ML SQ SCH (09:00)
[2018-05-31] MEDS ORDERED: ASPIRIN 81 MG TABLET CHEW PO/NG SCH (09:00)
[2018-05-31] MEDS ORDERED: SODIUM CHLORIDE 0.9% 1,000 ML IV SCH (18:51)
[2018-05-31] MEDS ORDERED: LIDODERM 5% PATCH TD PRN (19:00)
== END 2018-05-31 13:04 | disposition home or self-care (01) | DRG 917 ==
LOC: ED 16:14 → EDIP 19:17 → 4EST 19:22
PROVIDERS: ADMIT Hospitalist; ATTEND Hospitalist
DX: T42.4X1A Poisoning by benzodiazepines, accidental (unintentional), initial encounter (principal); G92 Toxic encephalopathy; J96.01 Acute respiratory failure with hypoxia; F33.9 Major depressive disorder, recurrent, unspecified; I50.30 Unspecified diastolic (congestive) heart failure; T40.2X1A Poisoning by other opioids, accidental (unintentional), initial encounter; D72.829 Elevated white blood cell count, unspecified; E03.9 Hypothyroidism, unspecified; E78.5 Hyperlipidemia, unspecified; E66.9 Obesity, unspecified; F43.10 Post-traumatic stress disorder, unspecified; G47.33 Obstructive sleep apnea (adult) (pediatric); G62.9 Polyneuropathy, unspecified; I11.0 Hypertensive heart disease with heart failure; G89.29 Other chronic pain; J44.9 Chronic obstructive pulmonary disease, unspecified; Z91.19 Patient's noncompliance with other medical treatment and regimen; Y92.89 Other specified places as the place of occurrence of the external cause; Z68.32 Body mass index [BMI] 32.0-32.9, adult; Z86.73 Personal history of transient ischemic attack (TIA), and cerebral infarction without residual deficits
CPT/HCPCS: 36415; 36600; 70450; 70496; 70498; 71045; 80053; 80061; 80307; 81003; 82803; 82962; 83735; 83880; 84439; 84443; 84484; 85025; 93005; 96360; 96361; G0378; J1650; J2310; Q9967; J7030